=== PATIENT | female | born 1980 | race Caucasian/White ===

== ENCOUNTER 2020-10-09 12:18 | Emergency (ER) | payer OTHER, SELFPAY ==
[2020-10-09 12:23] VITALS: BP 116/74; PULSE 70; RESP 20; TEMP 37; O2SAT 99; BMI 30.1
[2020-10-09] MEDS: Fluorescein Sodium STRIP 1 STRIP EYE-LEFT (13:43)
[2020-10-09] MEDS: Tetracaine HCl/PF 0.5% Oph Sol 4 ML DROPS 1 DROP EYE-LEFT (13:43)
--- NOTE | 2020-10-09 13:57 | CT_ITS ---
EXAMINATION: CT HEAD WITHOUT CONTRAST CLINICAL INFORMATION: Dizziness COMPARISON: None TECHNIQUE: Contiguous axial imaging was performed from the skull base to vertex without intravenous administration of contrast. This CT examination was performed using dose optimization techniques as appropriate, variously including the following: *Automated exposure control *Adjustment of mA and/or kV according to patient size (this includes techniques or standardized protocols for targeted exams where dose is matched to indication/reason for exam; i.e. extremities or head) *Use of iterative reconstruction technique DLP: 663 mGy-cm FINDINGS: There is no evidence of acute intracranial hemorrhage or territorial infarction. No abnormal mass effect or midline shift is seen. Hare to white matter differentiation is well preserved. No extra-axial fluid collections are identified. The ventricles are normal in size. There is no abnormal attenuation within the brain parenchyma. The osseous structures and soft tissues are normal. The mastoid air cells and visualized portions of the paranasal sinuses are well aerated. CT/CT head/brain wo con IMPRESSION: No acute intracranial pathology.
--- NOTE | 2020-10-09 13:58 | ED_ITS ---
HPI - Eye Problem General Chief complaint: Eye Problems Stated complaint: l eye issue Time Seen by Provider: 10/09/20 12:57 Source: patient Mode of arrival: ambulatory Limitations: no limitations History of Present Illness HPI Narrative: 39-year-old female walked into the emergency department from urgent care for evaluation for dizziness and left eye subconjunctival hemorrhage. Patient was head by a car door in her left side of forehead 2 weeks ago patient did not seek medical attention then, patient woke up this morning with left eye subconjunctival hemorrhage, fell dizzy when at work, but otherwise no blurry vision or double vision, declined any headache or nausea or vomiting. Declined any recent direct trauma to the eye. Patient was seen at the urgent care and was sent here for evaluation concerning of the dizziness that this resolved now. Related Data Allergies Allergy/AdvReac Type Severity Reaction Status Date / Time No Known Allergies Allergy Verified 10/09/20 13:02 Review of Systems Review of Systems: All other systems are reviewed and are negative Constitutional: Reports as per HPI and Reports no additional constitutional complaints Eyes: Reports as per HPI and Reports no additional eye complaints Reports system reviewed and no additional complaints, except as documented Cardiovascular: Reports as per HPI and Reports no additional cardiovascular complaints Respiratory: Reports as per HPI and Reports no additional respiratory complaints Gastrointestinal: Reports as per HPI and Reports no additional gastrointestinal complaints Genitourinary: Reports no additional female genitourinary complaints Musculoskeletal: Reports no additional musculoskeletal complaints Skin/Breast: Reports system reviewed and no additional complaints, except as docu Psychiatric: Reports no additional psychiatric complaints Endocrine: Reports no additional endocrine complaints Hematologic/Lymphatic: Reports no additional hematologic/lymphatic complaints Allergic/Immunologic: Reports no additional allergic/immunologic complaints Reports system reviewed and no additional complaints, except as documented and Reports Abnormal speech present [facility] Past Medical History Medical History No known health problems Social History Social History Advance Directives: No Advance Directives Information Provided: No Physical Exam Vital Signs: Vital Signs: Last Vital Signs Temp 98.6 F 10/09/20 12:23 Pulse 70 10/09/20 12:23 Resp 20 10/09/20 12:23 BP 116/74 10/09/20 12:23 Pulse Ox 99 10/09/20 12:23 Body Mass Index 30.1 Vital signs have been reviewed as normal and appeared to be correct. Blood pressure normal. Heart rate normal. Respiration rate normal. Temperature normal. Oxygen saturation normal. Appearance: Alert. Oriented X3. No acute distress. Head: Normal external exam. Normocephalic. Atraumatic. No Bai signs noted. No raccoon eyes noted Eyes: Right eye exam is unremarkable, left eye exam: Normal inspection to upper and lower left eyelids, there is a sizable subconjunctival hemorrhage on the left sclera, no corneal fluorescein uptake or abrasion, pupil unreactive to light bilaterally. Anterior chamber is unremarkable no cell or fluid, fundal exam is unremarkable, extraocular muscle are intact bilaterally, I 0 P in the right-sided 12 in the left side is 15. Visual acuity on the right 20/50 on the left 20/70. ENT: EAC normal. TM's Normal. Pharynx normal. Uvula midline. Moist mucous membranes. No trismus noted. No drooling noted. No muffled voice noted. Neck: Normal inspection. Neck supple. FROM. No adenopathy. Thyroid Normal. No meningeal signs. No neck mass noted. CVS: Normal heart rate and rhythm. Heart sound normal. No murmurs noted. Pulses normal throughout. Respiratory: No respiratory distress. Painless inspiration. Breath sounds normal. No wheezes/rales/rhonchi noted. Chest nontender. No accessory muscle usage noted or decreased air movement noted. Abdomen: Soft and nontender. Bowel sounds normal in all 4 quadrants. No distention noted. No organomegaly noted. No visible injury noted. Back: No CVA tenderness. Full range of motion noted. Skin: Skin warm and dry. Normal skin color. Normal skin turgor. No rashes/lesions/lacerations noted. Extremities: No lower extremity edema. Extremities exhibit normal range of motion. Extremities nontender. Neuro: Oriented X 3. No motor deficit. No sensory deficit. Reflexes normal. MDM - Eye Problem MDM Narrative Medical decision making narrative: Assessment and plan. 39-year-old female had 2 weeks ago trauma to her left forehead, today presented with left subconjunctival hemorrhage and dizziness, otherwise unremarkable eye exam, unremarkable neurological exam, head CT was unremarkable for any intracranial hemorrhage or pathology. Will discharge the patient to follow up with regular PCP. Imaging Data CT scan - head: Radiologist's impression: No acute intracranial pathology. Discharge Plan Discharge Clinical Impression: Subconjunctival hemorrhage Patient Disposition: Home, Self-Care Instructions: Subconjunctival Hemorrhage (ED) Referrals: Tara Mace MD [Primary Care Provider] - 2 days Stand Alone Forms: Work/School Release
[2020-10-09 14:29] VITALS: BP 100/55; PULSE 57; RESP 16; TEMP 36.8; O2SAT 96
== END 2020-10-09 15:16 | disposition home or self-care (01) ==
PROVIDERS: Emergency Provider Emergency Medicine; PCP Family Medicine
DX: H11.32 Conjunctival hemorrhage, left eye (principal); H57.12 Ocular pain, left eye; R42 Dizziness and giddiness
CPT/HCPCS: 70450; 99284

== ENCOUNTER 2024-07-05 12:57 | Emergency (ER) | payer OTHER, SELFPAY ==
[2024-07-05 13:00] VITALS: BP 121/59; PULSE 67; RESP 16; TEMP 36.6; O2SAT 98; BMI 29.8
--- NOTE | 2024-07-05 13:00 | ED_ITS ---
HPI - General Adult General Chief complaint: Allergic Reaction Stated complaint: ? Allergic Reaction Time Seen by Provider: 07/05/24 13:25 Source: patient Mode of arrival: ambulatory Limitations: no limitations History of Present Illness HPI narrative: Patient is a 43-year-old female who presents emergency department for evaluation. She reports concern for discomfort and swelling to the right side of her face just anterior to her ear between her jaw. She was concern that she may be having allergic reaction. She had been eating toast with peanut butter and fluff and drinking a coffee when suddenly she developed a metallic taste in her mouth followed by this swelling. She attempted to take Benadryl with this did not change her symptoms. She denies any rash hives swelling of the lips, throat closing sensation, chest pain or shortness of breath. She states that this did happen 1 time before but she did not experience the swelling she simply develop this metallic taste in her mouth. When asked, she does admit that she had a viral illness approximately 2 weeks ago both her and her son. Her son has received childhood vaccinations, she is uncertain whether she ever received the MMR vaccine, [place] She does work in a local shelter setting. She denies any constitutional symptoms Related Data Allergies Allergy/AdvReac Type Severity Reaction Status Date / Time No Known Allergies Allergy Verified 07/05/24 13:05 [facility], [facility] Past Medical History Medical History No known health problems Social History Social History Alcohol intake: never Advance Directives: No Advance Directives Information Provided: No Physical Exam ED Vital Signs: Vital Signs - 24 hr 07/05/24 13:00 07/05/24 14:21 Temperature 97.9 F 97.9 F Pulse Rate 67 67 Respiratory Rate 16 16 Blood Pressure 121/59 L 121/59 L Pulse Oximetry 98 98 Oxygen Delivery Method Room Air Room Air BMI result Body Mass Index 29.8 Appearance: Alert.?Oriented to person, place and time. No acute distress.?Normal affect. Eyes: Pupils equal, round and reactive to light.? ENT: Pharynx normal.??Tenderness upon palpation of the right parotid gland with mild swelling no overlying erythema. No palpable firm nodule or lump. Tenderness and swelling to the right submandibular salivary gland. No stone is visualized at the [place] duct Neck: Normal inspection.? Neck supple.??No cervical adenopathy CVS: Heart sounds normal. Normal heart rate and rhythm.? Pulses normal.?? Respiratory: No respiratory distress.? Lung sounds clear to auscultation bilaterally?? Skin: Skin warm and dry.? Normal skin color.? Extremities: No lower extremity edema.? Neuro: Moves all extremities spontaneously. Sensation intact bilaterally. CN II- XII intact. No focal neuro deficits. Ambulates with normal steady gait. Course Course Course Narrative: This is a rapid medical exam performed by Suni Schneider NP: Additional HPI, ROS, PE not included below will be deferred to primary provider. Patient is a 43-year-old female presenting to the ED with complaint of swelling to right side of face. Feels she is having an allergic reaction, took benadryl [employer]. Was eating toast with PB and fluff and drinking coffee when she noted a metallic taste in her mouth. Lungs CTA, no angioedema or uvula edema. Swelling noted to right cheek. No obvious dental abscess noted. She states area is tender, feels like a bruise. Medical Decision Making Medical Decision Making MDM Narrative: Patient is a 43-year-old female who presents emergency department for evaluation of sudden onset swelling to her right cheek as per HPI. History and physical examination is most concerning for parotitis most likely secondary to a stone given his abrupt onset while eating, may be secondary to recent viral illness though I suspect this is less likely to as it has been greater than 1 week and she is currently currently without symptoms, has no constitutional symptoms. S uspect less likely bacterial sialadenitis given its abrupt onset, additionally upon palpation of the parotid gland there is no evidence of purulence noted at the orifice of the stensens duct. Possibly Sjogren's disease though she has no associated dry eyes or dry mouth and it is unilateral rather than bilateral. In the emergency department she was provided with a sour candy Differential Diagnosis Differential Diagnoses: The differential diagnosis associated with the presentation includes (See narrative above) External Record Review External record reviewed: Outpatient record Tests considered The following testing was considered but not selected: See narrative above Prescription Management I considered prescription management with: Pain Medication (Acetami nophen/ibuprofen) and Antibiotic (Do not suspect acute infectious etiology, deferred) Discharge Plan Discharge Clinical Impression: Acute parotitis, Sialolithiasis Patient Disposition: Home, Self-Care Instructions: Sialoadenitis (ED) Additional Instructions: As discussed, based on the history provided it is likely that there is a stone that is stuck at the duct of the gland. Sometimes one of the most helpful measures that you can do is consuming a sour candy every few hours and gently massaging the area. If you develop cold-like symptoms; fevers, chills, cough, nasal congestion or pus-like drainage into the mouth you should have this re-evaluated Please follow-up with your primary care doctor Interventions: ED Discharge Assessment Last Done: 07/05/24 14:21 Discharge Date/Time: 07/05/24 14:22 Print Language: Iraqi
[2024-07-05 14:21] VITALS: BP 121/59; PULSE 67; RESP 16; TEMP 36.6; O2SAT 98
== END 2024-07-05 14:22 | disposition home or self-care (01) ==
PROVIDERS: Emergency Provider Emergency Medicine; PCP Family Medicine
DX: K11.21 Acute sialoadenitis (principal)
CPT/HCPCS: 99282; 99283